=== PATIENT | male | born 1950 | race Caucasian/White ===

== ENCOUNTER 2016-07-19 17:50 | Inpatient (IN) | payer SELFPAY ==
[~2016-07-19] VITALS: Ht 167.6 cm; Wt 56.7 kg
[2016-07-19 17:50] VITALS: BP 149/89; PULSE 105; RESP 20; TEMP 97.5; O2SAT 99
--- NOTE | 2016-07-19 17:50 | NUR ---
Patient to ER bed 6 to gown for evaluation. Side rails up. Report given to MOMO Oconnell.
--- NOTE | 2016-07-19 18:01 | NUR ---
Pt report received from MOMO Spaulding. Pt c/o N/V x 2 days, denies abdominal pain or discomfort. Pt with hx of prostate CA. Family member at bedside and states that pt has been losing weight.
--- NOTE | 2016-07-19 18:13 | NUR ---
Pt states he wants to hold off on the Tylenol right now.
[2016-07-19] MEDS ORDERED: ACETAMINOPHEN 500 MG TABLET PO ONE (18:15)
--- NOTE | 2016-07-19 18:42 | NUR ---
Pt to CT via stretcher.
[2016-07-19] MEDS ORDERED: DIPHENHYDRAMINE INJ 50 MG/ML VIAL IVP ONE (19:00)
--- NOTE | 2016-07-19 19:00 | NUR ---
Pt returns from CT. No needs verbalized at this time.
--- NOTE | 2016-07-19 19:10 | NUR ---
Pt report given to MOMO Mora.
[2016-07-19 19:11] LABS: HEMATOCRIT 51.1 % (36-54); HEMOGLOBIN 16.3 g/dL (14.0-18.0); MEAN CORPUSCULAR HEMOGLOBIN 29 pg (27-31); MEAN CORPUSCULAR HGB CONC 32 % (32-36); MEAN CORPUSCULAR VOLUME 89 fL (79.0-98.0); PLATELET COUNT (AUTO) 381 K/uL (130-430); RED BLOOD CELL COUNT(AUTO) 5.73 MIL/uL (4.2-6.2); RED CELL DISTRIBUTION WIDTH 13.6 % (9.0-15.0)
[2016-07-19 19:17] LABS: ANION GAP 29 (5-15); CALCIUM 9.3 mg/dL (8.4-11.0); CHLORIDE 96 mmol/L (98-107); CREATININE 1.51 mg/dL (0.55-1.30); GLUCOSE 385 mg/dL (70-99); POTASSIUM 4.8 mmol/L (3.5-5.1); SODIUM SERUM 134 mmol/L (136-145); UREA NITROGEN, BLOOD 31 mg/dL (8-21)
[2016-07-19 19:22] LABS: PROTHROMBIN TIME 10.8 SECS (9.5-12.5)
[2016-07-19 19:33] LABS: ALANINE AMINOTRANSFERASE 16 U/L (12-78); ASPARTATE AMINOTRANSFERASE 10 U/L (10-37); FREE T4 (FREE THYROXINE) 0.6 ng/dL (0.6-1.6); TOTAL BILIRUBIN 0.4 mg/dL (0.0-1.0); TOTAL PROTEIN, SERUM 9.6 g/dL (6.4-8.3)
[2016-07-19] MEDS ORDERED: BICA50TA PO (19:34)
[2016-07-19] MEDS ORDERED: METF-716 PO (19:35)
[2016-07-19 19:36] LABS: BAND % (MANUAL) 8 % (0-6); BASOPHILS % (MANUAL) 0 % (0-2); EOSINOPHILS % (MANUAL) 0 % (0-7); LYMPHOCYTES % (MANUAL) 3 % (20-46); MONOCYTES % (MANUAL) 3 % (0-11)
[2016-07-19 19:38] LABS: GFR AFRICAN AMERICAN 60 mL/min (>90)
[2016-07-19 19:41] LABS: ALCOHOL, BLOOD < 3 mg/dL (<10)
--- NOTE | 2016-07-19 19:44 | NUR ---
Pt medicated per MD, stated he feels less nauseous. Will continue to monitor
[2016-07-19] MEDS ORDERED: ONDANSETRON HCL 4 MG/2 ML VIAL IVP ONE (19:45)
[2016-07-19] MEDS ORDERED: NACL 0.9% 1,000 ML IV ONE ×2 (19:45→20:45)
[2016-07-19] MEDS ORDERED: PIPERACILLIN/TAZOBACTAM 3.375 GM/VIAL (ZOSYN) IV ONE (20:15)
[2016-07-19] MEDS ORDERED: PIPERACILLIN/TAZO 3.375 GM in NS 50 ML IV ONE (20:15)
--- NOTE | 2016-07-19 20:20 | NUR ---
MD Boogie at bedside evalauting pt
--- NOTE | 2016-07-19 20:24 | NUR ---
Blood cult x2, lactic order x2, zosyn administered. 2L NS bolus in progress.
--- NOTE | 2016-07-19 21:30 | NUR ---
Pt denies N/V. T 97.8, girlfriend at bedside. Will continue to monitor
[2016-07-19 21:32] LABS: CLARITY/URINE CLEAR (CLEAR); COLOR,URINE YELLOW (YELLOW); GLUCOSE,URINE 2+ (NEGATIVE); KETONES,URINE 3+ (NEGATIVE); LEUKOCYTE ESTERASE ,URINE NEGATIVE (NEGATIVE); NITRITE, URINE NEGATIVE (NEGATIVE); PH,URINE 5.5 (5.0-8.0); PROTEIN URINE 1+ (NEGATIVE); UROBILINOGEN,URINE 0.2 (0.2-1.0)
[2016-07-19 21:43] LABS: BILIRUBIN,URINE NEGATIVE (NEGATIVE); BLOOD, URINE TRACE (NEGATIVE)
[2016-07-19 21:44] LABS: BARBITURATE, URINE NEGATIVE (NEG <=200); BENZODIAZEPINE, URINE NEGATIVE (NEG <=150); CANNABINOID, URINE NEGATIVE (NEG <=50); COCAINE, URINE NEGATIVE (NEG <=150); METHAMPHETAMINES SCREEN,URINE NEGATIVE (NEG <=500); OPIATE, URINE NEGATIVE (NEG <=100); PHENCYCLIDINE SCREEN,URINE NEGATIVE (NEG <=25); UR TRICYCLIC ANTIDEPRESSANTS NEGATIVE (NEG <=300); URINE AMPHETAMINE NEGATIVE (NEG <=500); URINE METHADONE NEGATIVE (NEG <=200); URINE OXYCODONE SCREEN NEGATIVE (NEG <=100); URINE PROPOXYPHENE SCREEN NEGATIVE (NEG <=300)
[2016-07-19 21:45] LABS: BACTERIA,URINE FEW /HPF (None Seen); MUCUS,URINE None Seen /LPF (None Seen); RBC,URINE NONE SEEN /HPF (0-3); WBC,URINE 0-3 /HPF (0-3)
[2016-07-19] MEDS ORDERED: ONDANSETRON HCL 4 MG/2 ML VIAL IVP PRN (22:00)
[2016-07-19] MEDS ORDERED: MORPHINE 2 MG/ML INJ. SYRINGE IVP PRN (22:00)
--- NOTE | 2016-07-19 22:15 | NUR ---
Patient will be admitted to care of . Admitted to M/S unit. Will go to room 111A. Belongings list completed. Summary report printed. Report given to Nina BARR.
--- NOTE | 2016-07-19 22:19 | NUR ---
ADMISSION NOTE Received patient from ER via gurney. Patient admitted with diagnosis of sepsis. Patient is awake, alert, oriented X 4. ambulatory with steady gait.
--- NOTE | 2016-07-19 22:25 | NUR ---
pt.recieved via the er-dept.dx:sepsis.labs reviewed.wbc elevated;>18k,lactic acid:3.0/3.7.zosyn:abx;ivpb administered in the er-dept.v/s assessed.temp:98.6.pt.presents hx:diabetes.belongings list 2 b attended 2.snack 2 b provided. diet status:con/cho.call stella w/in pt's reach.
[2016-07-19 22:33] VITALS: BP 148/88; PULSE 114; RESP 18; TEMP 98.6; O2SAT 100
[2016-07-19] MEDS: NACL 0.9% 1,000 ML IV SCH (22:50)
[2016-07-19] MEDS: INSULIN REGULAR, HUMAN 100 UNITS/ML, 10 ML VIAL (novoLIN R) SUBCUT PRN (22:57)
[2016-07-19] MEDS ORDERED: VANCOMYCIN HCL 1 GM/NS PREMIX 250 ML IV ONE (23:00)
--- NOTE | 2016-07-19 23:15 | NUR ---
iv fluids initiated:ns@100ml/hr.blood glucose assessed:379mg/dl.snack provided.belongings attended 2.sig-other 2 take clothing/belongings home:dentures present:upper/lower;partial.denture cup provided.call light w/in pt's reach.
[2016-07-19] MEDS ORDERED: VANCOMYCIN HCL 1000 MG/VIAL IV ONE (23:39)
--- NOTE | 2016-07-19 23:45 | NUR ---
pt.assessed.10-units;regular insulin administered 2/t sliding scale:blood glucose;379mg/dl.vancomycin:abx;ivpb inital dose administered.no other request @this hour.call light w/in pt's reach.
[2016-07-20] VITALS: BP 136/79; PULSE 102; RESP 18; TEMP 98.7; O2SAT 99
--- NOTE | 2016-07-20 | NUR ---
pt.assessed.pt.repositioned self.i have emptied the urinal.vancomycin;ivpb infusing.call light w/in pt's reach.
--- NOTE | 2016-07-20 02:00 | NUR ---
pt.assessed.pt.positioned self.have emptied the urinal.iv fluids infusing.administration:vancomycin ivpb complete. call light w/in pt's reach.
--- NOTE | 2016-07-20 03:00 | NUR ---
pt.assessed.pt.presents quiecent affect;calm,asleep.have checked the urinal emptied.call light @pt's side.
[2016-07-20 04:00] VITALS: BP 124/70; PULSE 100; RESP 17; TEMP 98.2; O2SAT 98
--- NOTE | 2016-07-20 04:00 | NUR ---
pt.assessed.pt.presents quiescent affect;calm,asleep.urinal emptied.call light w/in pt's reach.
--- NOTE | 2016-07-20 06:15 | NUR ---
pt.assessed.blood glucose assessed:232mg/dl.iv fluids infusing.belongings -list attended 2 pt.has signed the belongings-list.urinal emptied.call light placed w/in pt's reach.
[2016-07-20] MEDS: INSULIN REGULAR, HUMAN 100 UNITS/ML, 10 ML VIAL (novoLIN R) SUBCUT PRN (06:44)
[2016-07-20 06:56] LABS: BASOPHILS % (AUTO) 0.1 % (0.0-2.0); EOSINOPHILS % (AUTO) 0.1 % (0.0-4.0); HEMATOCRIT 44.2 % (36-54); HEMOGLOBIN 14.2 g/dL (14.0-18.0); LYMPHOCYTES # (AUTO) 0.8 K/uL (1.0-5.5); LYMPHOCYTES % (AUTO) 4.7 % (20.5-51.5); MEAN CORPUSCULAR HEMOGLOBIN 28 pg (27-31); MEAN CORPUSCULAR HGB CONC 32 % (32-36); MEAN CORPUSCULAR VOLUME 88 fL (79.0-98.0); MONOCYTES # (AUTO) 1.1 K/uL (0.0-1.0); MONOCYTES % (AUTO) 6.4 % (1.7-9.3); NEUTROPHILS # (AUTO) 14.6 K/uL (1.8-7.7); NEUTROPHILS % (AUTO) 88.7 % (40.0-70.0); PLATELET COUNT (AUTO) 352 K/uL (130-430); RED BLOOD CELL COUNT(AUTO) 5.01 MIL/uL (4.2-6.2); WHITE BLOOD COUNT (AUTO) 16.5 K/uL (4.8-10.8)
[2016-07-20 07:15] LABS: ALBUMIN 3.3 g/dL (3.4-4.8); CALCIUM 8.3 mg/dL (8.4-11.0); CREATININE 1.3 mg/dL (0.55-1.30); POTASSIUM 4.4 mmol/L (3.5-5.1); TOTAL BILIRUBIN 0.5 mg/dL (0.0-1.0); TOTAL PROTEIN, SERUM 8.1 g/dL (6.4-8.3)
--- NOTE | 2016-07-20 07:20 | NUR ---
NRSG: RECEIVED FROM NIGHT RN, AWAKE,ALERT AND ORIENTED X 4. RESPIRATION EVEN AND UNLABORED. LUNGS CLEAR BILATERAL. NO C/OF PAIN. ABDOMEN SOFT WITH ACTIVE BOWEL SOUND X 4 QUADRANTS. IV SITE INTACT AND INPLACED ON THE LEFT HAND GAUGE 22 AND IVF ON PROGRESS AND CALL LIGHT WITHIN REACH.
[2016-07-20 08:00] VITALS: BP 114/74; PULSE 89; RESP 18; TEMP 97.4; O2SAT 100
--- NOTE | 2016-07-20 08:00 | NUR ---
BREAKFAST: ATE VERY POORLY AND SEEN BY THE DIETARY STAFF AND AT THE BEDSIDE..
--- NOTE | 2016-07-20 08:58 | NUR ---
ROUNDS: SEEN AND EXAMINED BY DR. ASHBY WITH NEW ORDERS.
[2016-07-20] MEDS ORDERED: POTASSIUM CHLORIDE 20 MEQ TAB.PRT.SR PO PRN (09:00)
[2016-07-20] MEDS ORDERED: LORazepam 2 MG/ML VIAL IVP PRN (09:00)
[2016-07-20] MEDS ORDERED: MAGNESIUM SULFATE 50 ML IV PRN (09:00)
[2016-07-20] MEDS ORDERED: ZOLPIDEM TARTRATE 5 MG TABLET PO PRN (09:00)
[2016-07-20] MEDS ORDERED: MORPHINE 2 MG/ML INJ. SYRINGE IVP PRN (09:00)
[2016-07-20] MEDS ORDERED: DEXTROSE 50% JECT 50 ML DISP.SYRIN IVP PRN (09:00)
[2016-07-20] MEDS ORDERED: ACETAMINOPHEN 325 MG TABLET PO PRN (09:00)
[2016-07-20] MEDS ORDERED: ONDANSETRON HCL 4 MG/2 ML VIAL IVP PRN (09:00)
[2016-07-20] MEDS ORDERED: DOCUSATE SODIUM 100 MG CAPSULE PO PRN (09:00)
--- NOTE | 2016-07-20 10:00 | NUR ---
POSITION: LYING ON HIS BACK AND HAD VISITOR AT THE BEDSIDE.
[2016-07-20] MEDS: NACL 0.9% 1,000 ML IV SCH ×2 (10:53→20:51)
[2016-07-20] MEDS: HEPARIN SODIUM,PORCINE 5000 UNITS/ML VIAL SUBCUT SCH ×2 (11:03→20:57)
[2016-07-20 11:35] VITALS: Ht 167.6 cm; Wt 56.7 kg
--- NOTE | 2016-07-20 12:00 | NUR ---
VISITOR: VISITED BY FAMILY MEMBERS AND AT THE BEDSIDE.PATIENT NO COMPLAINTS OF PAIN.
[2016-07-20] MEDS: INSULIN ASPART 100 UNITS/ML, 10 ML VIAL (NovoLOG) SUBCUT PRN ×3 (12:02→21:01)
[2016-07-20 12:18] VITALS: BP 103/68; PULSE 85; RESP 17; TEMP 98.7; O2SAT 100
[2016-07-20] MEDS: METOCLOPRAMIDE HCL 10 MG/2 ML VIAL IVP SCH ×2 (13:41→22:24)
--- NOTE | 2016-07-20 15:09 | NUR ---
output: URINATED ON THE URINALS WITH CLEAR YELLOW URINE.
--- NOTE | 2016-07-20 16:02 | NUR ---
ACTIVITY: AWAKE,ALERT AND ORIENTED. AT THE BEDSIDE. PATIENT RESTING COMFORTABLY. CALL LIGHT WITHIN REACH.
[2016-07-20 16:09] VITALS: BP 105/60; PULSE 83; RESP 16; TEMP 99.5; O2SAT 97
--- NOTE | 2016-07-20 18:00 | NUR ---
MEALS: ENCOURAGED TO EAT DINNER ,AWAKE,ALERT AND ORIENTED . IV SITE INTACT AND INPLACED ,NO S/S OF INFILTRATION AND IVF ON PROGRESS. CALL LIGHT WITHIN REACH.
[2016-07-20 19:50] VITALS: BP 103/60; PULSE 81; RESP 18; TEMP 98.3; O2SAT 98
--- NOTE | 2016-07-20 19:50 | NUR ---
INITIAL NOTE Patient resting on the bed comfortable. Respiration even and unlabored. Denied of pain. AO x 4. Skin warm and dry to touch. IV intact to left hand, no redness, no swelling, no drainage. On NS at 100ml/hr, infusing well. Discussed the safety issue, use call light when need help, and plan of care, vernally understanding. Bed in low position bed alarm on, side rails up. Call light within reached. Will continue to monitor.
--- NOTE | 2016-07-20 21:42 | NUR ---
ROUND Patient resting on the bed comfortable. No acute distress. Emptied urinal. Safety measure maintained. Call light within reached. Bed in low position, bed alarm on, side rails up. Continue to monitor.
[2016-07-20] MEDS ORDERED: VANCOMYCIN HCL 1,000 MG in NS 250 ML IV SCH (23:00)
--- NOTE | 2016-07-20 23:32 | NUR ---
ROUND Patient resting on the bed with eyes closed. Respiration even and unlabored. Safety measure maintained. Call light within reached. Bed in low position, bed alarm on, side rails up. Continue to monitor.
[2016-07-21 00:27] VITALS: BP 107/69; PULSE 79; RESP 18; TEMP 97.1; O2SAT 99
--- NOTE | 2016-07-21 01:43 | NUR ---
ROUND Patient sleeping at this time. No acute distress. Safety measure maintained. Call light within reached. Bed in low position, bed alarm on, side rails up. Continue to monitor.
--- NOTE | 2016-07-21 03:29 | NUR ---
ROUND Patient sleeping comfortable. Respiration even and unlabored. No acute distress. Bed alarm on, bed in low position, side rails up. Call light within reached. Continue to monitor.
[2016-07-21 04:00] VITALS: BP 102/67; PULSE 74; RESP 18; TEMP 97.3; O2SAT 99
--- NOTE | 2016-07-21 05:06 | NUR ---
ICE CHIP PROVIDED Patient woke up an requested for ice chip. Ice chip provided. Patient no acute distress. No c/o pain. Safety measure maintained. Call light within reached. Bed in low position, bed alarm on, side rails up. Continue to monitor
--- NOTE | 2016-07-21 05:30 | NUR ---
AMBULATED IN THE HALLWAY Ambulated patient in the hallway x15 mins, tolerated well. No acute distress. Safety measure maintained. Will continue to monitor.
[2016-07-21 06:30] LABS: BASOPHILS % (AUTO) 0.4 % (0.0-2.0); HEMOGLOBIN 12.1 g/dL (14.0-18.0); LYMPHOCYTES # (AUTO) 1.2 K/uL (1.0-5.5); LYMPHOCYTES % (AUTO) 9.9 % (20.5-51.5); MEAN CORPUSCULAR HEMOGLOBIN 29 pg (27-31); MEAN CORPUSCULAR HGB CONC 34 % (32-36); MEAN CORPUSCULAR VOLUME 87 fL (79.0-98.0); MONOCYTES # (AUTO) 0.6 K/uL (0.0-1.0); MONOCYTES % (AUTO) 5.5 % (1.7-9.3); NEUTROPHILS % (AUTO) 84.2 % (40.0-70.0); PLATELET COUNT (AUTO) 265 K/uL (130-430); RED BLOOD CELL COUNT(AUTO) 4.13 MIL/uL (4.2-6.2); RED CELL DISTRIBUTION WIDTH 13.4 % (9.0-15.0); WHITE BLOOD COUNT (AUTO) 11.8 K/uL (4.8-10.8)
--- NOTE | 2016-07-21 06:30 | NUR ---
INSERTED IV Patient 's IV site leakage, insert a new IV site on RFA with 22 gauge, attempted x 2 with good blood return. Flushed with NS. Procedure tolerated well. No acute distress. Denied of pain.
[2016-07-21 06:40] LABS: CREATININE 0.81 mg/dL (0.55-1.30)
[2016-07-21] MEDS: METOCLOPRAMIDE HCL 10 MG/2 ML VIAL IVP SCH ×2 (06:49→14:01)
--- NOTE | 2016-07-21 06:50 | NUR ---
CLOSING NOTE Patient resting on the bed comfortable. Respiration even and unlabored. Denied of pain. IV intact to RFA, no redness, no swelling, no drainage. On NS at 100ml/hr, infusing well. All need met. Hourly rounding during shift. VS stable. Safety measure maintained. Bed in low position bed alarm on, side rails up. Call light within reached. Will endorse to morning shift nurse.
--- NOTE | 2016-07-21 07:35 | NUR ---
AM ROUNDS Pt sitting up in bed...Denies N/V/D or pain at this time...IVF infusing well to RAC...Pt ambulates with steady gait...Call light/phone w/in reach...Will cont to monitor
[2016-07-21 09:01] VITALS: BP 109/60; PULSE 81; RESP 20; TEMP 98.6; O2SAT 99
[2016-07-21] MEDS: HEPARIN SODIUM,PORCINE 5000 UNITS/ML VIAL SUBCUT SCH (09:12)
--- NOTE | 2016-07-21 09:18 | NUR ---
PT TOLERATED DIET WELL DENIES N/V
--- NOTE | 2016-07-21 09:19 | NUR ---
PO K+ GIVEN PER MD STANDING ORDER
--- NOTE | 2016-07-21 10:38 | NUR ---
ROUNDS PT COMFORTABLE...ANXIOUS TO GO HOME...WILL CONT TO MONITOR
[2016-07-21] MEDS: INSULIN ASPART 100 UNITS/ML, 10 ML VIAL (NovoLOG) SUBCUT PRN (11:57)
[2016-07-21] MEDS: NACL 0.9% 1,000 ML IV SCH (12:06)
[2016-07-21 12:28] VITALS: BP 99/57; PULSE 86; RESP 17; TEMP 98.9; O2SAT 98
--- NOTE | 2016-07-21 12:36 | NUR ---
ROUNDS PT STABLE..NO CHANGES..SITTING UP EATING LUNCH...PT ANXIOUS TO GO HOME...WILL PAGE DR ASHBY IN REGARDS TO PT ASKING IF HE CAN BE DISCHARGED HOME
[2016-07-21] MEDS ORDERED: LEVO500T20 PO (13:25)
[2016-07-21] MEDS ORDERED: ONDA4TAB5 PO (13:25)
[2016-07-21] MEDS ORDERED: METF1000 PO (13:25)
[2016-07-21] MEDS ORDERED: GLIP10TA11 PO (13:25)
[2016-07-21 14:17] VITALS: BP 104/79; PULSE 84; RESP 20; TEMP 98.6; O2SAT 99
--- NOTE | 2016-07-21 14:33 | NUR ---
PT AMBULATING IN HALLWAY GAIT IS SLOW BUT STEADY
--- NOTE | 2016-07-21 15:48 | NUR ---
D/C Patient Patient given medication reconciliation form and D/C instructions. Exit Care provided. Patient verbalized understanding. MD discussed with patient the results and treatment provided. Ambulatory with steady gait for discharge to home. Patient in stable condition, ID band removed. IV catheter removed, intact and dressing applied, no active bleeding. Rx of GLIPIZIDE,ZOFRAN,AND LEVAQUIN given. Patient educated on pain management. All belongings sent with patient. PT STABLE UPON DISCHARGE
[2016-07-22] MEDS ORDERED: LEVOFLOXACIN 500 MG TABLET PO SCH (09:00)
== END 2016-07-21 15:50 | disposition home or self-care (01) | DRG 871 ==
LOC: SED 17:50 → SMU 21:52
PROVIDERS: ADMIT General Practice; ATTEND General Practice
DX: A41.9 Sepsis, unspecified organism (principal); N17.0 Acute kidney failure with tubular necrosis; E44.0 Moderate protein-calorie malnutrition; E11.43 Type 2 diabetes mellitus with diabetic autonomic (poly)neuropathy; E11.65 Type 2 diabetes mellitus with hyperglycemia; K31.84 Gastroparesis; Z79.899 Other long term (current) drug therapy; Z68.20 Body mass index [BMI] 20.0-20.9, adult; Z85.46 Personal history of malignant neoplasm of prostate
CPT/HCPCS: 36415; 70450-TC; 71010; 74000-TC; 80048; 80053; 80307; 81000-TC; 82140-TC; 82962; 83605; 83735-TC; 83880; 84439; 84484; 85007; 85025; 85027; 85610-TC; 87040-TC; 93005; 96365; 96375; 99291; G0482; J1200; J1644; J1815; J2405; J2543; J2765; J3370; J7030; J7050

== ENCOUNTER 2017-07-24 19:41 | Inpatient (IN) | payer OTHER ==
[~2017-07-24] VITALS: Ht 167.6 cm; Wt 59.0 kg
[2017-07-24] MEDS: NACL 0.9% 1,000 ML IV SCH (00:45)
[~2017-07-24 19:41] MED LIST: BICA50TA PO; GLIP10TA11 PO; LEVO500T20 PO; METF-716 PO; METF1000 PO; ONDA4TAB5 PO
[2017-07-24 19:53] VITALS: BP_SYST 112
[2017-07-24] MEDS ORDERED: MORPHINE 4 MG/ML INJ. SYRINGE IVP ONE ×2 (22:00→23:00)
[2017-07-24] MEDS ORDERED: ONDANSETRON HCL 4 MG/2 ML VIAL IVP ONE (22:00)
[2017-07-24] MEDS ORDERED: NACL 0.9% 1,000 ML IV ONE ×2 (22:00→23:15)
[2017-07-24 22:19] LABS: BASOPHILS % (AUTO) 0.2 % (0.0-2.0); EOSINOPHILS % (AUTO) 0.1 % (0.0-4.0); HEMATOCRIT 35.2 % (36-54); HEMOGLOBIN 11.3 g/dL (14.0-18.0); LYMPHOCYTES # (AUTO) 0.8 K/uL (1.0-5.5); LYMPHOCYTES % (AUTO) 7.6 % (20.5-51.5); MEAN CORPUSCULAR HEMOGLOBIN 26 pg (27-31); MEAN CORPUSCULAR HGB CONC 32 % (32-36); MEAN CORPUSCULAR VOLUME 80 fL (79.0-98.0); MONOCYTES # (AUTO) 0.7 K/uL (0.0-1.0); MONOCYTES % (AUTO) 6.1 % (1.7-9.3); NEUTROPHILS # (AUTO) 9.6 K/uL (1.8-7.7); PLATELET COUNT (AUTO) 505 K/uL (130-430); RED BLOOD CELL COUNT(AUTO) 4.42 MIL/uL (4.2-6.2); RED CELL DISTRIBUTION WIDTH 16.1 % (9.0-15.0); WHITE BLOOD COUNT (AUTO) 11.1 K/uL (4.8-10.8)
[2017-07-24 22:36] LABS: CALCIUM 9.7 mg/dL (8.4-11.0); CREATININE 0.92 mg/dL (0.55-1.30); POTASSIUM 4.2 mmol/L (3.5-5.1)
[2017-07-24 22:41] LABS: ALBUMIN 3.3 g/dL (3.4-4.8); TOTAL BILIRUBIN 0.6 mg/dL (0.0-1.0)
[2017-07-24] MEDS ORDERED: ONDANSETRON HCL 4 MG/2 ML VIAL IVP PRN (23:00)
[2017-07-24] MEDS ORDERED: ACETAMINOPHEN 325 MG TABLET PO PRN (23:00)
[2017-07-24] MEDS ORDERED: LORazepam 2 MG/ML VIAL IVP PRN (23:15)
[2017-07-24] MEDS ORDERED: ZOLPIDEM TARTRATE 5 MG TABLET PO PRN (23:15)
[2017-07-24] MEDS ORDERED: POTASSIUM CHLORIDE 20 MEQ TAB.PRT.SR PO PRN (23:15)
[2017-07-24] MEDS ORDERED: BISACODYL 10 MG/SUPPOSITORY RC PRN (23:15)
[2017-07-24] MEDS ORDERED: SIMETHICONE 80 MG TAB.CHEW PO PRN (23:15)
[2017-07-24 23:54] LABS: FREE T4 (FREE THYROXINE) 0.8 ng/dL (0.6-1.6); PHOSPHORUS 2.9 mg/dL (2.7-4.5); THYROID STIMULATING HORMONE 0.84 uIu/mL (0.34-4.82)
[2017-07-24 23:55] VITALS: BP_SYST 125
[2017-07-25] VITALS: BP_SYST 125
[2017-07-25] MEDS: HYDROcodone/ACETAMIN 10-325 MG TAB PO PRN ×3 (00:47→17:38)
[2017-07-25] MEDS: MORPHINE 2 MG/ML INJ. SYRINGE IVP PRN ×5 (03:55→23:38)
[2017-07-25] MEDS: NACL 0.9% 1,000 ML IV SCH ×3 (06:24→21:44)
[2017-07-25 07:39] LABS: CHOLESTEROL 148 mg/dL (<200); HDL CHOLESTEROL 42 mg/dL (>45); LDL CHOLESTEROL 82 mg/dL (<100); TRIGLYCERIDES 91 mg/dL (30-150)
[2017-07-25] MEDS ORDERED: DEXTROSE 50%-WATER 50 ML DISP.SYRIN IVP PRN ×2 (08:15)
[2017-07-25] MEDS: DOCUSATE SODIUM 100 MG CAPSULE PO SCH ×2 (08:15→21:45)
[2017-07-25] MEDS ORDERED: GLUCOSE 15 GM GEL (in 37.5 GM TUBE) PO PRN ×2 (08:15)
[2017-07-25 08:28] VITALS: BP_SYST 114
[2017-07-25 12:06] VITALS: BP_SYST 103
[2017-07-25] MEDS: INSULIN REGULAR, HUMAN 100 UNITS/ML, 10 ML VIAL (novoLIN R) SUBCUT PRN ×3 (12:26→21:50)
[2017-07-25 16:28] VITALS: BP_SYST 112
[2017-07-25 20:05] VITALS: BP_SYST 102
[2017-07-26 00:08] VITALS: BP_SYST 111
[2017-07-26] MEDS: HYDROcodone/ACETAMIN 10-325 MG TAB PO PRN ×3 (01:13→17:35)
[2017-07-26] MEDS: NACL 0.9% 1,000 ML IV SCH ×3 (04:18→11:39)
[2017-07-26 06:54] LABS: BASOPHILS % (AUTO) 0.4 % (0.0-2.0); EOSINOPHILS % (AUTO) 0.7 % (0.0-4.0); HEMATOCRIT 28.3 % (36-54); HEMOGLOBIN 9.1 g/dL (14.0-18.0); LYMPHOCYTES # (AUTO) 0.9 K/uL (1.0-5.5); LYMPHOCYTES % (AUTO) 15.8 % (20.5-51.5); MEAN CORPUSCULAR HEMOGLOBIN 26 pg (27-31); MEAN CORPUSCULAR HGB CONC 32 % (32-36); MEAN CORPUSCULAR VOLUME 79 fL (79.0-98.0); MONOCYTES # (AUTO) 0.6 K/uL (0.0-1.0); MONOCYTES % (AUTO) 9.6 % (1.7-9.3); NEUTROPHILS # (AUTO) 4.2 K/uL (1.8-7.7); NEUTROPHILS % (AUTO) 73.5 % (40.0-70.0); PLATELET COUNT (AUTO) 341 K/uL (130-430); RED BLOOD CELL COUNT(AUTO) 3.56 MIL/uL (4.2-6.2); RED CELL DISTRIBUTION WIDTH 16.2 % (9.0-15.0); WHITE BLOOD COUNT (AUTO) 5.7 K/uL (4.8-10.8)
[2017-07-26 07:22] LABS: CALCIUM 8.4 mg/dL (8.4-11.0); CREATININE 0.61 mg/dL (0.55-1.30); POTASSIUM 3.8 mmol/L (3.5-5.1)
[2017-07-26 08:00] VITALS: BP_SYST 134
[2017-07-26 08:24] LABS: T4 (THYROXINE) 5.2 ug/dL (4.5-12.0)
[2017-07-26] MEDS: DOCUSATE SODIUM 100 MG CAPSULE PO SCH ×2 (08:55→20:03)
[2017-07-26] MEDS: MORPHINE 2 MG/ML INJ. SYRINGE IVP PRN ×3 (08:56→20:21)
[2017-07-26 11:33] VITALS: BP_SYST 109
[2017-07-26] MEDS: INSULIN REGULAR, HUMAN 100 UNITS/ML, 10 ML VIAL (novoLIN R) SUBCUT PRN ×3 (11:41→20:13)
[2017-07-26 15:27] VITALS: BP_SYST 101
[2017-07-26 19:50] VITALS: BP_SYST 105
[2017-07-26 23:10] VITALS: BP_SYST 110
[2017-07-27] MEDS: NACL 0.9% 1,000 ML IV SCH ×2 (02:52→10:52)
[2017-07-27] MEDS: HYDROcodone/ACETAMIN 10-325 MG TAB PO PRN ×2 (03:36→08:45)
[2017-07-27 04:06] LABS: BILIRUBIN,URINE NEGATIVE (NEGATIVE); BLOOD, URINE NEGATIVE (NEGATIVE); CLARITY/URINE CLEAR (CLEAR); COLOR,URINE YELLOW (YELLOW); GLUCOSE,URINE 2+ (NEGATIVE); KETONES,URINE 1+ (NEGATIVE); LEUKOCYTE ESTERASE ,URINE NEGATIVE (NEGATIVE); NITRITE, URINE NEGATIVE (NEGATIVE); PH,URINE 5.5 (5.0-8.0); PROTEIN URINE NEGATIVE (NEGATIVE); UROBILINOGEN,URINE 0.2 (0.2-1.0)
[2017-07-27 04:24] LABS: BACTERIA,URINE FEW /HPF (None Seen); RBC,URINE 0-3 /HPF (0-3); WBC,URINE 0-3 /HPF (0-3)
[2017-07-27] MEDS: INSULIN REGULAR, HUMAN 100 UNITS/ML, 10 ML VIAL (novoLIN R) SUBCUT PRN ×2 (06:20→11:36)
[2017-07-27 07:52] LABS: CALCIUM 8.3 mg/dL (8.4-11.0); CREATININE 0.61 mg/dL (0.55-1.30); PHOSPHORUS 3.3 mg/dL (2.7-4.5); POTASSIUM 3.6 mmol/L (3.5-5.1)
[2017-07-27 07:54] LABS: BASOPHILS % (AUTO) 0.2 % (0.0-2.0); EOSINOPHILS % (AUTO) 0.5 % (0.0-4.0); HEMATOCRIT 28.7 % (36-54); HEMOGLOBIN 9.3 g/dL (14.0-18.0); LYMPHOCYTES % (AUTO) 12.5 % (20.5-51.5); MEAN CORPUSCULAR HEMOGLOBIN 26 pg (27-31); MEAN CORPUSCULAR HGB CONC 32 % (32-36); MEAN CORPUSCULAR VOLUME 80 fL (79.0-98.0); MONOCYTES # (AUTO) 0.5 K/uL (0.0-1.0); MONOCYTES % (AUTO) 6.5 % (1.7-9.3); NEUTROPHILS # (AUTO) 6.2 K/uL (1.8-7.7); NEUTROPHILS % (AUTO) 80.3 % (40.0-70.0); PLATELET COUNT (AUTO) 343 K/uL (130-430); RED BLOOD CELL COUNT(AUTO) 3.59 MIL/uL (4.2-6.2); RED CELL DISTRIBUTION WIDTH 15.7 % (9.0-15.0); WHITE BLOOD COUNT (AUTO) 7.7 K/uL (4.8-10.8)
[2017-07-27 08:15] VITALS: BP_SYST 109
[2017-07-27] MEDS: DOCUSATE SODIUM 100 MG CAPSULE PO SCH (08:45)
[2017-07-27] MEDS: MORPHINE 2 MG/ML INJ. SYRINGE IVP PRN (10:53)
[2017-07-27 11:07] LABS: HEMOGLOBIN A1C 10.9 % (4.8-5.6)
[2017-07-27] MEDS ORDERED: MORP15TA PO (12:41)
[2017-07-27 12:44] VITALS: BP_SYST 117
[2017-07-27 12:59] VITALS: BP_SYST 117
== END 2017-07-27 15:34 | disposition home or self-care (01) | DRG 542 ==
LOC: SED 19:41 → SMU 23:00
PROVIDERS: ADMIT Family Medicine; ATTEND Family Medicine
DX: C79.51 Secondary malignant neoplasm of bone (principal); N17.0 Acute kidney failure with tubular necrosis; E44.1 Mild protein-calorie malnutrition; E83.42 Hypomagnesemia; D63.8 Anemia in other chronic diseases classified elsewhere; E11.9 Type 2 diabetes mellitus without complications; E87.1 Hypo-osmolality and hyponatremia; I10 Essential (primary) hypertension; E78.5 Hyperlipidemia, unspecified; D72.829 Elevated white blood cell count, unspecified; E86.0 Dehydration; Z90.79 Acquired absence of other genital organ(s); Z68.21 Body mass index [BMI] 21.0-21.9, adult
CPT/HCPCS: 36415; 71250-TC; 80048; 80053; 80061; 81000-TC; 82150-TC; 82962; 83036; 83690-TC; 83735-TC; 83880; 84100-TC; 84436; 84439; 84443-TC; 84479; 85025; 96361; 96374; 96375; 96376; 97116-GP; 97530-GP; 99285; J1815; J2270; J2405; J7030